=== PATIENT | male | born 1985 | race Two or more races ===

== ENCOUNTER 2019-01-27 05:39 | Day surgery (SDC) | payer OTHER ==
[~2019-01-27] VITALS: Ht 165.1 cm; Wt 69.4 kg
[2019-01-27] VITALS (10 sets, daily range): BP systolic 106–129; BP diastolic 67–78
[2019-01-27] MEDS ORDERED: oxyCONTIN 20mg tab ORAL ONE (06:00)
[2019-01-27] MEDS ORDERED: Acetaminophen 500mg (ES) tab ORAL PRN (06:00)
[2019-01-27] MEDS ORDERED: celeBREX 200mg Cap **SURGERY PATIENTS ONLY ORAL ONE (06:00)
[2019-01-27] MEDS ORDERED: ceFAZolin 1gm IVPB IVPB ONE ×2 (06:00)
[2019-01-27] MEDS ORDERED: NKM (06:31)
--- NOTE | 2019-01-27 07:15 | Pre-Procedure Note/Attestation ---
Pre-Procedure Note/Attestation Complete Prior to Procedure Planned Procedure: right Procedure Narrative: shoulder scope, SAD, labral repair Attestation I attest that I discussed the nature of the procedure; its benefits; risks and complications; and alternatives (and the risks and benefits of such alternatives ), prior to the procedure, with the patient (or the patient's legal account retention representative). I attest that, if there was a reasonable possibility of needing a blood transfusion, the patient (or the patient's legal account retention representative) was given the [facility] standardized written summary, pursuant to the [place] Blood Safety Act ([place] Health and Safety Code # 1645, as amended). I attest that I re-evaluated the patient just prior to the surgery and that there has been no change in the patient's H&P, except as documented below: Elder Goldstein MD Jan 27, 2019 07:15
[2019-01-27] MEDS ORDERED: Bupivacaine w/Epi 0.5% 30ml Vial INJ ONE (07:18)
[2019-01-27] MEDS ORDERED: Midazolam 2mg/2ml Inj ONE (07:31)
[2019-01-27] MEDS ORDERED: fentaNYL 100 mcg/2 mL IV ONE (07:31)
[2019-01-27] MEDS ORDERED: Zemuron 50mg/5ml Inj IV ONE (07:34)
[2019-01-27] MEDS ORDERED: Bupivacaine 0.5% Inj 30 ml vial INJ ONE (07:34)
--- NOTE | 2019-01-27 07:53 | Anethesia Preoperative Eval ---
BekahjamesWendie marcano [facility] 01/27/19 0753: Anesthesia Pre-op PMH/ROS General Date of Evaluation: Jan 27, 2019 Time of Evaluation: 07:00 Anesthesiologist: Elsa ASA Score: ASA 2 Mallampati Score Class I : Soft palate, uvula, fauces, pillars visible Class II: Soft palate, uvula, fauces visible Class III: Soft palate, base of uvula visible Class IV: Only hard plate visible Mallampati Classification: Class II Surgeon: Roe Diagnosis: shoulder pain Surgical Procedure: right shoulder revision arthroscopy Anesthesia History: none Allergies: Coded Allergies: No Known Allergies (Unverified , 01/22/19) Medications: see eMAR Patient NPO?: Yes NPO Date: Jan 27, 2019 NPO Time: 00:01 Past Medical History Cardiovascular: Denies: HTN, CAD, CT, valve dz, arrhythmia, other Pulmonary: Denies: asthma, COPD, OLAF, other Gastrointestinal/Genitourinary: Reports: GERD; Denies: CRI, ESRD, other Neurologic/Psychiatric: Denies: dementia, CVA, depression/anxiety, TIA, other Endocrine: Denies: DM, hypothyroidism, steroids, other HEENT: Denies: cataract (L), cataract (R), glaucoma, COCOPAH (L), COCOPAH (R), other Hematology/Immune: Denies: anemia, DVT, bleeding disorder, other Musculoskeletal/Integumentary: Denies: OA, RA, DJD, DDD, edema, other Anesthesia Pre-op Phys. Exam Physician Exam Last Vital Signs Date Time Temp Pulse Resp B/P (MAP) Pulse Ox O2 Delivery O2 Flow Rate FiO2 01/27/19 06:31 Room Air 01/27/19 06:09 97.5 61 18 114/77 98 Constitutional: NAD Neurologic: CN 2-12 intact Cardiovascular: RRR Respiratory: CTA Gastrointestinal: S/NT/ND Airway Exam Mallampati Classification 2 Mallampati Score: Class II Teeth: other - chipped left front incisor Dentures: no upper, no lower Anesthesia Pre-op A/P Studies Pre-op Studies: EKG - sr Risk Assessment & Plan Assessment: denies changes in health Plan: peripheral nerve block + General Pre-Antibiotics Drug: ancef Given Within 1 Hr of Incision: Yes Ion Hunter MD 01/27/19 1009: Anesthesia Pre-op PMH/ROS General Allergies: Coded Allergies: No Known Allergies (Unverified , 01/22/19) Wendie tSahl CRNA Jan 27, 2019 07:53 Ion Hunter MD Jan 27, 2019 10:09
[2019-01-27] MEDS ORDERED: fentaNYL 100 mcg/2 mL IV PRN ×2 (08:00→10:15)
[2019-01-27] MEDS ORDERED: Metoclopramide 10mg/2ml Inj IVP PRN (08:00)
[2019-01-27] MEDS ORDERED: LR 1000ml ONE (08:00)
[2019-01-27] MEDS ORDERED: NS Irrig 4000ml IRRIG ONE ×2 (08:00→08:20)
[2019-01-27] MEDS ORDERED: Metoclopramide 10mg/2ml Inj ONE (08:34)
[2019-01-27] MEDS ORDERED: Propofol 200mg/20ml IV ONE (08:34)
[2019-01-27] MEDS ORDERED: Ropivacaine 5mg/ml Vial 30ml INJ ONE (08:34)
[2019-01-27] MEDS ORDERED: Lidocaine 1% MPF 10mg/ml 5ml ONE (08:34)
[2019-01-27] MEDS ORDERED: Acetaminophen (Non formulary) 100 ML IV ONE (09:00)
--- NOTE | 2019-01-27 10:08 | Immediate Post-Op Evaluation ---
Immediate Post-Op Evalulation Immediate Post-Op Evalulation Procedure: right shoulder arthroscopy junior Date of Evaluation: Jan 27, 2019 Time of Evaluation: 10:08 Nausea: No Vomiting: No Ion Hunter MD Jan 27, 2019 10:08
--- NOTE | 2019-01-27 10:48 | Brief Operative Note ---
Immediate Post Operative Note Operative Note Pre-op Diagnosis: right shoulder labral tear Procedure: Right shoulder scope, posterior labral repair, chondroplasty, SAD Post-op Diagnosis: same as pre-op Surgeon: nacho Anesthesia: general Specimen: none Complications: none Condition: stable Fluids: 100cc Estimated Blood Loss: none Drains: none Implant(s) used?: Yes - 2 biomet anchors Elder Goldstein MD Jan 27, 2019 10:48
--- NOTE | 2019-01-27 10:49 | 48 Hour Post Anesthesia Eval ---
Post Anesthesia Evaluation Procedure: right shoulder arthroscopy luray Date of Evaluation: Jan 27, 2019 Time of Evaluation: 10:49 Blood Pressure Systolic: 129 0: 72 Pulse Rate: 58 Respiratory Rate: 14 O2 Sat by Pulse Oximetry: 98 Airway: patent Nausea: No Vomiting: No Hydration Status: adequate Cardiopulmonary Status: stable Mental Status/LOC: patient returned to baseline Follow-up Care/Observations: na Post-Anesthesia Complications: none Follow-up care needed: N/A Wendie Stahl CRNA Jan 27, 2019 10:49
[2019-01-27] MEDS ORDERED: Tylenol #3 tab (300mg/30mg) ORAL PRN (16:01)
[2019-01-27] MEDS ORDERED: D5 1/2NS 1,000 ML IV SCH (16:01)
[2019-01-27] MEDS ORDERED: HYDROmorphone 1mg/ml Carpuject SUBQ PRN (16:01)
[2019-01-27] MEDS ORDERED: HYDROcodone/Acetamin 5/325 tab ORAL PRN (16:01)
--- NOTE | 2019-01-27 16:30 | Operative Note - Dictated ---
DATE OF OPERATION: 01/27/2019 PREOPERATIVE DIAGNOSES: 1. Right shoulder posterior labral tearing. 2. Right shoulder impingement. POSTOPERATIVE DIAGNOSES: 1. Right shoulder large posterior labral tearing with involvement of the labrum from 6:[address] up to the 11 o'clock position. 2. Evidence of glenoid chondral loss, posterior inferiorly measuring 5 x 7 mm. 3. Loose floating suture fragment in the subscapularis recess from previous surgery with a loose body measuring approximately 1 cm. 4. Right shoulder subacromial impingement. PROCEDURE: 1. Right shoulder arthroscopy and extensive intra-articular shaving. 2. Right shoulder resection of 1 cm loose suture fragment from subscapularis recess. 3. Right shoulder repair of the posterior inferior glenoid labrum and repair using 2 Biomet 1.5 mm JuggerKnot anchors. 4. Right shoulder posterior glenoid chondroplasty. 5. Right shoulder subacromial bursoscopy, bursectomy, subacromial decompression. SURGEON: Elder Goldstein M.D. DIGESTION OPERATOR: Josie Harding PA-C. Deckhand Clam Dredge was present during the actual operative portion of the case and was important and essential part of the operation. During the operation, the physical therapist assistant held and operated the arthroscopic camera for visualization, assisted by manipulating the arm to help with visualization, and helped with essential parts of the repair process as necessary such as operating surgical instruments under surgeon supervision, suture management, and wound closures. ANESTHESIOLOGIST: Ion Hunter M.D. ANESTHESIA: General LMA anesthesia combined with interscalene block. ESTIMATED BLOOD LOSS: Less than mL. COMPLICATIONS: None. SURGICAL INDICATION: Patient is a 33-year old male who sustained the above injury to his shoulder. The patient was treated non-operative initially, but this did not alleviate the patients symptoms. Therefore, after discussing all non-surgical and surgical options, and discussing all foreseeable risk and benefits of surgery, the patient opted for surgical treatment as described above. PATIENT POSITIONING: Patient was brought to the operating room table and was placed on the operating room table. All pressure points were well padded. General anesthesia was induced and patient was then placed in the lateral decubitus position. All pressure points were well padded again and an axillary roll was placed. Patient shoulder was then prepped and draped in the usual sterile fashion. Time out was performed and the appropriate preoperative antibiotic was given by the anesthesiologist. EXAMINATION OF SHOULDER UNDER ANESTHESIA: The shoulder was examined under anesthesia with all muscles well relaxed. The shoulder was forward flexed, abducted and was placed through full range of external and internal rotation. The anterior, posterior, and inferior stability of the shoulder was checked. The exam revealed there was some mild posterior inferior instability, but there was no adhesive capsulitis. PORTAL PLACEMENT: The posterior portal was established 2cm inferior and 1cm medial to the edge of the posterior acromion. 1 cm skin incision was made using an eleven blade and using the blunt obturator, the cannula was gently placed through the capsule. The midglenoid portal was established just lateral to the coracoid process under direct visualization. Direction of the cannula was first established using a spinal needle, and subsequently, the cannula was placed through the capsule with a blunt obturator. The anterior superior cannula was established under direct visualization off the anterior lateral edge of the acromion and just anterior to the biceps tendon through the rotator interval. The directional of cannula was first established using a spinal needle, and subsequently, the cannula was placed through the capsule with a blunt obturator. DIAGNOSTIC ARTHROSCOPY: The biceps tendon was probed and pulled through the joint for visualization. It appeared normal. The biceps anchor was palpated with a probe and was visualized. It appeared well attached and there was no evidence of SLAP tear. The posterior labrum and axillary recess was visualized. There was a large posterior labral tearing from 11:[address] down to 6:30 position. There was some chondral damage of the posterior inferior glenoid measuring 5 x 7 mm. The articular surface of the rotator cuff was visualized and probed next. There was no evidence of articular sided rotator cuff tear extending from the supraspinatus back to the posterior cuff. The Humeral head articular surface was then visualized. There was no evidence of articular cartilage damage. Next the anterior labrum, middle gleno-humeral ligament, subscapularis tendon, and the anterior inferior gleno-humeral ligament were evaluated. These structures were completely normal. At this point, the scope was moved to the midglenoid portal and the posterior structures including the posterior labrum, posterior capsule and posterior cuff were visualized. There was a large labral tear from 6:30 to 11:30 position posteriorly with inferior attachment. There was a loose fragment in subscapularis recess from prior surgery measuring approximately 1 cm. The middle and anterior inferior glenohumeral ligament was visualized. These structures were completely normal. OPERATIVE DEBRIDEMENTS AND REPAIR: Care was given to all partial thickness tears and frayed structures in the shoulder joint. The frayed rotator cuff and labrum was debrided using a shaver initially through the anterior portal and subsequently through the posterior portal to complete the debridement. This allowed for smooth debridement of all affected structures and all loose fragments were removed. At this point, care was given to the posterior glenoid. A chondroplasty of this area was performed and all loose fragments of cartilage was taken off the degenerated posterior inferior glenoid. At this point, care was given to the labrum. At this point, the labrum was debrided and using the elevator, it was mobilized. Using a shaver, the glenoid was debrided back to a bleeding surface and 2 Biomet 1.5 mm JuggerKnot anchors were placed without any complication. At this point, using suture back passing technique, the labrum, a simple suture was passed through the labrum and was then tied using SMC knots followed by 3 half hitches. This provided excellent stability of the posterior labrum. Using a probe, this was probed and reprobed and there was excellent stability. The anchors were placed in 7:30 and 10 o'clock positions, which provided excellent stability of the labrum. DIAGNOSTIC BURSOSCOPY AND SUBACROMIAL DECOMPRESSION: The subacromial bursa was entered from the posterior portal. The anterior portal was established under the CA ligament using a switching stick. Subacromial arthroscopy was initiated. There was extensive bursitis and thickened and inflamed bursa tissue present. The CA ligament appeared to be scuffed and frayed. The shaver was placed through the anterior cannula and debridement of the hypertrophic bursa tissue was accomplished. Once visualization was adequate, a lateral portal was established using a blunt trochar in the mid portion of the acromion bone in the anterior-posterior direction and approximately 2 cm lateral to the lateral edge of the acromion. Using combination of shaver and electrocautery the CA ligament was released from the undersurface of the acromion and a complete bursectomy was accomplished. At this point, a subacromial decompression was performed using a bear initially taking off 5-8 mm of the anterolateral edge of the acromion from the lateral portal and viewing from the posterior portal. Then the lateral border of the undersurface of the acromion was decompressed to the same dept as the anterolateral edge. A posterior trough was then created in the acromion in line with the posterior edge of the clavicle. At this point, the scope was placed in the lateral portal and the subacromial decompression was performed from the posterior portal decompressing the undersurface of the acromion to dept of 5-8 mm. The decompression was performed anterior to the previously marked trough all the way medially to the level of the AC joint. At all times, care was given not to take off too much bone in order to avoid risk of fracture of the acromion. An excellent subacromial decompression was performed in this fashion. At this point, the bursal side of the rotator cuff was examined. All the bursa over the rotator cuff was removed and the rotator cuff was examined with a probe. The arm was placed into external rotation, neutral, and then internal rotation and there was no evidence of tear of the rotator cuff. The scope was then placed in the posterior portal and the subacromial decompression was rechecked to assure there is no area of bone spur that would be still impinging onto the rotator cuff. CONDITION AT DISCHARGE FROM OPERATING ROOM: The skin was re-approximated and sterile dressing and sling were applied. All lap counts and instrument counts were correct. Patient tolerated the procedure well without complications and was taken to the recovery room in stable conditions. Elder Goldstein M.D. DR: KAMRYN JOB#: [id number] CC:
== END 2019-01-27 12:10 | disposition home or self-care (01) ==
LOC: SUR 05:39
DX: S43.401A Unspecified sprain of right shoulder joint, initial encounter (principal); M75.41 Impingement syndrome of right shoulder; M24.011 Loose body in right shoulder; K21.9 Gastro-esophageal reflux disease without esophagitis; X58.XXXA Exposure to other specified factors, initial encounter; Y92.9 Unspecified place or not applicable
CPT/HCPCS: 29807; 29823; J0690; J2250; J2405; J2704; J2765; J2795; J3010; J3490; 94003; 94150; C1713